=== PATIENT | male | born 1990 | race Caucasian/White ===

== ENCOUNTER 2018-12-18 07:09 | Emergency (ER) | payer MEDICAID ==
[2018-12-18 07:22] VITALS: BP 142/74
--- NOTE | 2018-12-18 07:33 | ED Physician Documentation ---
PD HPI LOWER EXT INJURY - Stated complaint Stated Complaint: L FOOT PX - History obtained from History obtained from: Patient - History of Present Illness PD HPI LOW EXT INJURY LOCATION: Left, Foot Timing - onset: How many weeks ago (1.5) Timing - details: Abrupt onset Pain level now: 0 Improved by: Rest Worsened by: Other Associated symptoms: Numbness (Walking on itTop of his foot and around the lateral lower leg), Tingling Similar symptoms before: Has not had sx before Recently seen: Not recently seen - Additional information Additional information: This is a 28-year-old presents with complaints that he jumped out of a friend's truck about a week and a half ago onto the ground and had pain in his foot immediately. He did not twist the ankle. He was in flip-flops when it happened. 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 He has not been wrapping with anything. He has not taken any medications for it. He has had no prior injury to that foot. Review of Systems Musculoskeletal: reports: Extremity pain. denies: Joint swelling Neurologic: reports: Numbness. denies: Focal weakness PD PAST MEDICAL HISTORY - Allergies Allergies/Adverse Reactions: Allergies Allergy/AdvReac Type Severity Reaction Status Date / Time No Known Drug Allergies Allergy Verified 12/18/18 07:22 PD ED PE NORMAL - Vitals Vital signs reviewed: Yes - General General: Alert and oriented X 3, No acute distress, Well developed/nourished - HEENT HEENT: Atraumatic - Respiratory Respiratory: No respiratory distress - Derm Derm: Normal color, Warm and dry, No rash - Extremities Extremities: Other (There is very minimal edema across the top of the left foot. He has a 2+ dorsalis pedis pulse. He is able to wiggle his toes. Sensation is intact to light touch through the foot. There is no bony tenderness over the lateral or medial malleolus. Across the tarsometatarsal joints or the base the fifth metatarsal. There is no bruising. The ankle feels stable to varus and valgus stresses and has a negative drawer sign.) - Neuro Neuro: Alert and oriented X 3, No motor deficit, No sensory deficit, Normal speech - Psych Psych: Normal mood, Normal affect Results - Vitals Vitals: Vital Signs - 24 hr 12/18/18 07:19 Temperature 36.8 C Heart Rate 71 Respiratory 15 Rate Blood Pressure 142/74 H O2 Saturation 99 Oxygen O2 Source Room air - Rads (name of study) L foot Radiology: EMP read contemporaneously (poss lucency through talus) ct L foot Radiology: See rad report (Neg fracture) PD MEDICAL DECISION MAKING - ED course Complexity details: reviewed results, d/w patient ED course: The talus had a unusual lucency through it so I did do a CT scan looking for occult fracture. The CT scan was read per the radiologist as negative. The patient will be reassured with instructions to follow-up with a primary care provider if her symptoms persist so that he can evaluate be further evaluated in terms of ligamentous injury. I think the paresthesias are just coming from constriction and swelling across the dorsal aspect of the foot may be related to the tightness of his shoes. Departure - Departure Disposition: 01 Home, Self Care Clinical Impression: Foot sprain Qualifiers: Encounter type: initial encounter Laterality: left Qualified Code(s): S93.602A - Unspecified sprain of left foot, initial encounter Condition: Good Instructions: ED Sprain Foot Follow-Up: [facility] [Provider Group] Comments: Avoid lacing your shoes tightly. Ibuprofen if needed for pain. At night when you get off work elevating and icing the be beneficial. Follow-up with a primary care provider if your symptoms persist.
--- NOTE | 2018-12-18 08:21 | XRAY Report ---
Reason: L foot pain Procedure Date: 12/18/2018 Accession Number: [id number] / [id number] Procedure: XR - Foot 3 View LT CPT Code: Final Report FULL RESULT: EXAM: LEFT FOOT RADIOGRAPHY EXAM DATE: 12/18/2018 07:50 AM. CLINICAL HISTORY: Left foot pain. Hurt his foot jumping out of a truck 10 days ago. COMPARISON: None. TECHNIQUE: 3 nonweightbearing views. FINDINGS: Bones: No fractures or bone lesions. No periosteal reaction. A type II accessory navicular ossicle is present. Joints: Normal. No subluxations. Soft Tissues: Normal. No soft tissue swelling. IMPRESSION: No acute or healing fracture identified. [facility]
--- NOTE | 2018-12-18 10:00 | CT Report ---
Reason: L foot pain; suspect talar fx on plain image Procedure Date: 12/18/2018 Accession Number: [id number] / [id number] Procedure: CT - LOWER EXTREMITY WO - LT CPT Code: Final Report FULL RESULT: EXAM: LEFT KNEE CT WITHOUT CONTRAST EXAM DATE: 12/18/2018 08:30 AM. CLINICAL HISTORY: L foot pain; suspect talar fx on plain image. COMPARISON: FOOT 3 VIEW LT 12/18/2018 7:38 AM. TECHNIQUE: Thin-section axial images were acquired of the knee without contrast. Post-processing: Coronal and sagittal reformats. Other: None. In accordance with CT protocol optimization, one or more of the following dose reduction techniques were utilized for this exam: automated exposure control, adjustment of mA and/or KV based on patient size, or use of iterative reconstructive technique. FINDINGS: Bones and articular surfaces: No acute fracture. No significant joint space narrowing or osteophyte formation. Accessory navicular. Normal alignment. Soft tissues: Visualized musculotendinous structures appear grossly intact. No significant muscle atrophy or fatty replacement. IMPRESSION: Normal foot CT. [facility]
== END 2018-12-18 10:44 | disposition home or self-care (01) ==
LOC: ED 07:09
DX: S93.602A Unspecified sprain of left foot, initial encounter (principal); W17.89XA Other fall from one level to another, initial encounter
CPT/HCPCS: 99282; 99283